=== PATIENT | male | born 1970 ===

== ENCOUNTER 2016-06-09 13:21 | Emergency (ER) | payer OTHER ==
[2016-06-09 13:49] VITALS: BP 118/79
--- NOTE | 2016-06-09 13:58 | UC ---
Hip/Pelvis Pain - HPI Summary HPI Summary: left hip pain x 7 days s/p fall on ice about 7 days ago , hit left hip increase pain at night time , cannot sleep . - History Of Current Complaint Chief Complaint: UCBackPain Stated Complaint: LOWER BACK PAIN S/P FALL Time Seen by Provider: 06/09/16 13:49 Hx Obtained From: Patient Onset/Duration: Sudden Onset, Lasting Days - 7, Still Present Timing: Constant Severity Initially: Moderate Severity Currently: Moderate Location: Discrete At: - left hip Character Of Pain: Aching Aggravating Factor(s): Movement Alleviating Factor(s): Rest Associated Signs And Symptoms: Negative: Swelling, Redness, Bruising, Fever, Weakness, Dizziness, Syncope, Abdominal Pain, Knee Pain - Allergies/Home Medications Allergies/Adverse Reactions: Allergies Allergy/AdvReac Type Severity Reaction Status Date / Time No Known Allergies Allergy Verified 06/09/16 13:45 Home Medications: Home Medications Ibuprofen TAB* [Advil TAB*] 400 mg PO DAILY PRN 06/09/16 [History Confirmed ] Sertraline* [Zoloft*] 150 mg PO QPM 06/09/16 [History Confirmed 06/09/16] PMH/Surg Hx/FS Hx/Imm Hx Previously Healthy: Yes - Surgical History Surgical History: None - Family History Known Family History: Negative: Diabetes - Social History Alcohol Use: None Substance Use Type: None Smoking Status (MU): Heavy Every Day Tobacco Smoker - Immunization History Most Recent Tetanus Shot: 2011 Review of Systems Constitutional: Negative Skin: Negative Eyes: Negative ENT: Negative Respiratory: Negative Cardiovascular: Negative Musculoskeletal: Other: - left hip pain All Other Systems Reviewed And Are Negative: Yes Physical Exam Triage Information Reviewed: Yes Appearance: Well-Appearing, No Pain Distress, Well-Nourished Vital Signs: Initial Vital Signs Temp 99.1 F 06/09/16 13:33 Pulse 81 06/09/16 13:33 Resp 18 06/09/16 13:33 BP 130/92 06/09/16 13:33 Vital Signs Reviewed: Yes Eyes: Positive: Conjunctiva Clear ENT: Positive: Normal ENT inspection, Hearing grossly normal, Pharynx normal Neck exam: Normal Neck: Positive: Supple, Nontender, No Lymphadenopathy Respiratory Exam: Normal Respiratory: Positive: Chest non-tender, Lungs clear Cardiovascular: Positive: RRR, No Murmur, Pulses Normal Musculoskeletal: Positive: Other: - left hip: no swelling , no bruising, no tenderness, good ROM on flexion and extension Hip Injury Course/Dx - Differential Dx/Diagnosis Provider Diagnoses: contusion left hip Discharge - Discharge Plan Condition: Stable Disposition: HOME Prescriptions: HYDROcodone/ACETAMIN 5-325 MG* [[place] 5-325 TAB*] 1 tab PO Q6H PRN #20 tab MDD 4 PRN Reason: Pain Patient Education Materials: Hip Contusion (ED) Additional Instructions: follow up with your pcp in 10 days if not better
== END 2016-06-09 14:09 | disposition home or self-care (01) ==
LOC: UCCORT 13:21
DX: S70.02XA Contusion of left hip, initial encounter (principal); F17.210 Nicotine dependence, cigarettes, uncomplicated; W00.9XXA Unspecified fall due to ice and snow, initial encounter; Y92.9 Unspecified place or not applicable
CPT/HCPCS: 99212; G0463